=== PATIENT | female | born 1995 | race African-American/Black ===

== ENCOUNTER 2017-02-11 17:49 | Emergency (ER) | payer OTHER ==
[~2017-02-11] VITALS: Ht 160 cm; Wt 86.2 kg
[2017-02-11 17:50] VITALS: BP 127/79
[2017-02-11] MEDS ORDERED: MOBIC15 MG PO (18:30)
== END 2017-02-11 19:00 | disposition home or self-care (01) ==
LOC: ER 17:49
DX: K02.9 Dental caries, unspecified (principal)

== ENCOUNTER 2018-02-15 15:07 | Emergency (ER) | payer OTHER ==
[~2018-02-15] VITALS: Ht 157.5 cm; Wt 104.3 kg
[~2018-02-15 15:07] MED LIST: MOBIC15 MG PO
[2018-02-15 15:22] VITALS: BP 128/78
[2018-02-15] MEDS ORDERED: PENICILLIN V P500 MG PO (15:29)
== END 2018-02-15 15:40 | disposition home or self-care (01) ==
LOC: ER 15:07
DX: J02.0 Streptococcal pharyngitis (principal)

== ENCOUNTER 2018-09-24 20:13 | Emergency (ER) | payer OTHER ==
[~2018-09-24] VITALS: Ht 157.5 cm; Wt 117.9 kg
[~2018-09-24 20:13] MED LIST changes: +PENICILLIN V P500 MG PO
[2018-09-24 20:49] LABS: URINE BILIRUBIN NEGATIVE (Negative); URINE BLOOD NEGATIVE (Negative); URINE CLARITY CLEAR; URINE COLOR YELLOW; URINE GLUCOSE-RANDOM* NEGATIVE (Negative); URINE KETONES NEGATIVE (Negative); URINE LEUKOCYTES-REFLEX NEGATIVE (Negative); URINE NITRITE-REFLEX NEGATIVE (Negative); URINE PROTEIN (DIPSTICK) NEGATIVE (Negative); URINE UROBILINOGEN 0.2 E.U./dl (0.2-1.0)
[2018-09-24] MEDS ORDERED: FLAGYL500 M1 PO (21:49)
[2018-09-24] MEDS ORDERED: DIFLUCAN150 M1 PO (21:54)
[2018-09-24 22:03] VITALS: BP 119/64
== END 2018-09-24 22:04 | disposition home or self-care (01) ==
LOC: ER 20:13
PROVIDERS: Student in an Organized Health Care Education/Training Program
DX: N76.0 Acute vaginitis (principal); B96.89 Other specified bacterial agents as the cause of diseases classified elsewhere

== ENCOUNTER 2019-01-24 15:32 | Emergency (ER) | payer OTHER ==
[~2019-01-24] VITALS: Ht 177.8 cm; Wt 104.3 kg
[~2019-01-24 15:32] MED LIST changes: +DIFLUCAN150 M1 PO; +FLAGYL500 M1 PO
[2019-01-24] MEDS ORDERED: SENNA-DOCUSATE1 EAC1 PO (17:09)
[2019-01-24] MEDS ORDERED: HYDROCODONE-ACE15 ML PO (17:09)
[2019-01-24] MEDS ORDERED: IBUPROFEN 600600 M1 PO (17:09)
[2019-01-24 18:15] VITALS: BP 166/112
[2019-01-24] MEDS ORDERED: ZOFRAN ODT4 MG PO (18:15)
== END 2019-01-24 18:15 | disposition home or self-care (01) ==
LOC: ER 15:32
DX: J02.0 Streptococcal pharyngitis (principal)

== ENCOUNTER 2019-11-23 19:15 | Emergency (ER) | payer OTHER ==
[~2019-11-23] VITALS: Ht 162.6 cm; Wt 127.0 kg
[~2019-11-23 19:15] MED LIST changes: +HYDROCODONE-ACE15 ML PO; +IBUPROFEN 600600 M1 PO; +SENNA-DOCUSATE1 EAC1 PO; +ZOFRAN ODT4 MG PO
[2019-11-23] MEDS ORDERED: SSD CREAM 1% 5050 GM TOP (19:38)
[2019-11-23] MEDS ORDERED: NORCO 5-325 TA1 EAC1 PO (19:38)
[2019-11-23] MEDS ORDERED: IBUPROFEN 600600 M1 PO (19:38)
[2019-11-23 20:59] VITALS: BP 127/75
== END 2019-11-23 21:01 | disposition home or self-care (01) ==
LOC: ER 19:15
DX: T24.231A Burn of second degree of right lower leg, initial encounter (principal); X08.8XXA Exposure to other specified smoke, fire and flames, initial encounter; Y93.89 Activity, other specified; Y92.89 Other specified places as the place of occurrence of the external cause; Y99.8 Other external cause status

== ENCOUNTER 2020-04-06 22:34 | Emergency (ER) | payer OTHER ==
[~2020-04-06] VITALS: Ht 157.5 cm; Wt 81.7 kg
[~2020-04-06 22:34] MED LIST changes: +NORCO 5-325 TA1 EAC1 PO; +SSD CREAM 1% 5050 GM TOP
[2020-04-06] MEDS ORDERED: PENICILLIN V P500 MG PO (23:10)
[2020-04-06] MEDS ORDERED: NAPROSYN500 M1 PO (23:10)
[2020-04-06 23:20] VITALS: BP 134/79
[2020-04-06] MEDS ORDERED: DICLOFENAC SOD50 MG PO (23:23)
== END 2020-04-06 23:23 | disposition home or self-care (01) ==
LOC: ER 22:34
DX: K04.7 Periapical abscess without sinus (principal)

== ENCOUNTER 2020-09-15 16:03 | Emergency (ER) | payer OTHER ==
[~2020-09-15 16:03] MED LIST changes: +DICLOFENAC SOD50 MG PO; +NAPROSYN500 M1 PO
[2020-09-15 16:16] VITALS: BP 156/60
[2020-09-15 16:21] LABS: URINE BILIRUBIN NEGATIVE (Negative); URINE BLOOD TRACE (Negative); URINE CLARITY CLEAR; URINE COLOR YELLOW; URINE GLUCOSE-RANDOM* NEGATIVE (Negative); URINE KETONES NEGATIVE (Negative); URINE NITRITE-REFLEX NEGATIVE (Negative); URINE PROTEIN (DIPSTICK) NEGATIVE (Negative); URINE SPECIFIC GRAVITY 1.025 (1.005-1.035); URINE UROBILINOGEN 0.2 E.U./dl (0.2-1.0)
[2020-09-15 16:23] LABS: URINE LEUKOCYTES-REFLEX 1+ (Negative)
[2020-09-15 16:31] LABS: SQUAMOUS 4-10 Moderate /LPF (0-3)
[2020-09-15 16:32] LABS: BACTERIA-REFLEX 1-9 Few /HPF (None Seen); CASTS None Seen /LPF (None Seen); CRYSTALS None Seen /LPF (None Seen); URINE RBC 0-2 Rare /HPF (0-2); URINE WBC-REFLEX 0-5 Rare /HPF (0-5)
[2020-09-15] MEDS ORDERED: KEFLEX500 M1 PO (17:07)
== END 2020-09-15 17:31 | disposition home or self-care (01) ==
LOC: ER 16:03
PROVIDERS: Nurse Practitioner Family
DX: N39.0 Urinary tract infection, site not specified (principal); Z79.899 Other long term (current) drug therapy

== ENCOUNTER 2021-01-18 23:56 | Emergency (ER) | payer OTHER ==
[~2021-01-18] VITALS: Ht 157.5 cm; Wt 107.5 kg
[~2021-01-18 23:56] MED LIST changes: +KEFLEX500 M1 PO
[2021-01-19 01:01] LABS: ABSOLUTE NEUTROPHILS 6.8 thou/uL (1.4-8.2); BASOPHILS 0.6 % (0.0-2.0); EOSINOPHILS 1.6 % (0.0-3.0); HEMATOCRIT 38.4 % (37.0-47.0); HEMOGLOBIN 12.6 gm/dL (12.0-15.0); LYMPHOCYTES 31.7 % (24.0-44.0); MCH 28.9 pg (26.0-34.0); MCHC 32.8 g/dL (28.0-37.0); MCV 88.1 fL (80.0-100.0); MONOCYTES 5.7 % (1.0-8.0); PLATELET COUNT 399 thou/uL (150-400); POLYS 60.4 % (36.0-66.0); RBC 4.36 mil/uL (4.20-5.00); RDW 13.8 % (10.5-14.5); WBC 11.2 thou/uL (4.0-11.0)
[2021-01-19 01:03] LABS: URINE BILIRUBIN NEGATIVE (Negative); URINE BLOOD 2+ (Negative); URINE CLARITY CLEAR; URINE COLOR YELLOW; URINE GLUCOSE-RANDOM* NEGATIVE (Negative); URINE KETONES NEGATIVE (Negative); URINE LEUKOCYTES-REFLEX NEGATIVE (Negative); URINE NITRITE-REFLEX NEGATIVE (Negative); URINE PROTEIN (DIPSTICK) NEGATIVE (Negative); URINE SPECIFIC GRAVITY >= 1.030 (1.005-1.035)
[2021-01-19 01:11] LABS: CALCIUM 8.8 mg/dL (8.5-10.1); CREATININE 0.9 mg/dL (0.6-1.0); POTASSIUM 3.7 mmol/L (3.5-5.1)
[2021-01-19 01:41] LABS: BACTERIA-REFLEX None Seen /HPF (None Seen); CASTS None Seen /LPF (None Seen); MUCUS 0-3 Light strn/LPF (None Seen); SQUAMOUS 0-3 Few /LPF (0-3)
[2021-01-19 01:42] LABS: CRYSTALS None Seen /LPF (None Seen); URINE RBC 1-2 Rare /HPF (NONE SEEN); URINE WBC-REFLEX 0-5 Rare /HPF (0-5)
[2021-01-19] MEDS ORDERED: ULTRAM 50MG TAB50 MG PO (01:47)
[2021-01-19 01:52] VITALS: BP 134/69
== END 2021-01-19 01:50 | disposition home or self-care (01) ==
LOC: ER 23:56
PROVIDERS: Emergency Medicine
DX: N93.8 Other specified abnormal uterine and vaginal bleeding (principal); Z90.13 Acquired absence of bilateral breasts and nipples

== ENCOUNTER 2021-04-03 22:08 | Emergency (ER) | payer OTHER ==
[~2021-04-03] VITALS: Ht 160 cm; Wt 104.3 kg
[~2021-04-03 22:08] MED LIST changes: +ULTRAM 50MG TAB50 MG PO
[2021-04-03 22:18] VITALS: BP 122/80
[2021-04-03 23:29] LABS: URINE BILIRUBIN NEGATIVE (Negative); URINE BLOOD TRACE (Negative); URINE CLARITY SL CLOUDY; URINE COLOR YELLOW; URINE GLUCOSE-RANDOM* NEGATIVE (Negative); URINE KETONES TRACE (Negative); URINE LEUKOCYTES-REFLEX TRACE (Negative); URINE NITRITE-REFLEX NEGATIVE (Negative); URINE PROTEIN (DIPSTICK) TRACE (Negative); URINE SPECIFIC GRAVITY >= 1.030 (1.005-1.035); URINE UROBILINOGEN 0.2 E.U./dl (0.2-1.0)
== END 2021-04-03 23:49 | disposition home or self-care (01) ==
LOC: ER 22:08
PROVIDERS: Nurse Practitioner
DX: N76.0 Acute vaginitis (principal); Z98.890 Other specified postprocedural states; Z79.899 Other long term (current) drug therapy